=== PATIENT | female | born 1990 | race American Indian/Alaskan Native ===

== ENCOUNTER 2018-08-12 00:41 | Outpatient (CLI) | payer MEDICAID ==
[2018-08-12] MEDS ORDERED: LACTATED RINGERS 1,000 ML IV ONE (00:56)
[2018-08-12 02:50] LABS: Bilirubin,Urine NEG (Negative); Blood,Urine NEG (Negative); Color,Urine Yellow (Yellow); Mucus,Urine 3+ /HPF
== END 2018-08-12 03:38 | disposition home or self-care (01) ==
LOC: TRG 00:41
PROVIDERS: ATTEND Obstetrics & Gynecology
DX: O62.9 Abnormality of forces of labor, unspecified (principal); O26.893 Other specified pregnancy related conditions, third trimester; R10.9 Unspecified abdominal pain; Z3A.29 29 weeks gestation of pregnancy
CPT/HCPCS: 59025; 81001; J7120

== ENCOUNTER 2018-09-24 03:45 | Outpatient (CLI) | payer MEDICAID ==
[2018-09-24] MEDS ORDERED: LACTATED RINGERS 500 ML IV ONE (03:56)
[2018-09-24] MEDS ORDERED: LACTATED RINGERS 1,000 ML ONE (04:11)
[2018-09-24] MEDS ORDERED: BRETHINE SUB-Q ONE (04:34)
[2018-09-24] MEDS ORDERED: LACTATED RINGERS 1,000 ML IV SCH ×2 (04:51→05:00)
[2018-09-24 04:57] LABS: Amphetamine Screen,Urine PRESUMPTIVE NEGATIVE; Benzodiazepines Screen,Urine PRESUMPTIVE NEGATIVE; Cannabinoid Screen,Urine PRESUMPTIVE NEGATIVE; Cocaine Screen,Urine PRESUMPTIVE NEGATIVE; Methadone Screen,Urine PRESUMPTIVE NEGATIVE; Opiate Screen,Urine PRESUMPTIVE NEGATIVE
[2018-09-24 05:16] LABS: Bilirubin,Urine NEG (Negative); Blood,Urine NEG (Negative); Color,Urine Straw (Yellow); Protein,Urine <15 mg/dL mg/dL (Negative); Urobilinogen,Urine < 2.0 mg/dL (<2.0)
[2018-09-24 07:28] VITALS: BP 89/54
--- NOTE | 2018-09-24 10:29 | Ultrasound Report ---
LIMITED OB ULTRASOUND: History: Presentation. Gestation: Zepeda Position: Cephalic Heart Rate: 138 BPM Estimated gestational age is 35 weeks 4 days.
== END 2018-09-24 07:30 | disposition home or self-care (01) ==
LOC: TRG 03:45
PROVIDERS: ATTEND Obstetrics & Gynecology
DX: O62.9 Abnormality of forces of labor, unspecified (principal); Z3A.35 35 weeks gestation of pregnancy
CPT/HCPCS: 59025; 76815; 80307; 81001; 96372; J3105; J7120

== ENCOUNTER 2018-10-27 23:45 | Inpatient (IN) | payer MEDICAID ==
[2018-10-28] MEDS ORDERED: MINERAL OIL PO PRN (00:44)
[2018-10-28] MEDS ORDERED: XYLOCAINE 2% INFILTRATI ONE (00:44)
[2018-10-28] MEDS ORDERED: BRETHINE IVP PRN (00:44)
[2018-10-28] MEDS ORDERED: SUBLIMAZE IV PRN (00:44)
[2018-10-28] MEDS ORDERED: BRETHINE SUB-Q PRN (00:44)
[2018-10-28] MEDS ORDERED: PITOCin/NS 30 UNIT/500ML 30 UNITS/500 ML BAG IV SCH (01:00)
[2018-10-28] MEDS: LACTATED RINGERS 1,000 ML IV SCH ×2 (01:00→03:17)
[2018-10-28] MEDS ORDERED: PITOCin/NS 20 UNIT/1000ML DRIP 20 UNITS/1,000 ML BAG IV SCH (01:00)
[2018-10-28 01:21] LABS: Hematocrit 37.3 % (30.3-42.9); Hemoglobin 12.2 gm/dl (10.1-14.3); Mean Corpuscular HGB Conc 33 % (30-34); Mean Corpuscular Volume 84 fl (79-97); Platelet Count 227 K/mm3 (140-440); Red Blood Count 4.45 M/mm3 (3.65-5.03); Red Cell Distribution Width 14.3 % (13.2-15.2)
[2018-10-28] MEDS ORDERED: NARCAN 2 MG/2 ML IV PRN (02:06)
--- NOTE | 2018-10-28 02:24 | History and Physical Report ---
History of Present Illness Date of examination: 10/28/18 Date of admission: 10/27/18 23:57 Chief complaint: Contractions History of present illness: 27yo G 4 P 1 0 2 1 @ 40 weeks 3 days here with contractions for the past couple of days that worsened at around 11pm. She reports positive FMs but denies VB or LOF. She is a [facility] patient who initiated care at 8 weeks gestation. Her course has been complicated by PTL, +trich (s/p treatment, neg KRISTAL), h/o DVT and PE (was on Lovenox 40mg sq daily; discontinued 2 weeks ago), abnormal pap (ASCUS, +HR HPV), anemia (on supplementation) and vit D deficiency (was supplemented). Labs: A+, Antibody Screen neg, RI, VDRL NR, HBsAg neg, HIV neg, HSV II neg, MSAFP neg, GC/CT/Trich neg, GBS negative. Past History Past Medical History: deep vein thrombosis, other (pulmonary embolism) Past Surgical History: no surgical history LIGHT BULB TESTER History: abnormal PAP smear (ASCUS, +HR HPV), trichomonas (treated; neg KRISTAL) Family/Genetic History: none Social history: single, lives with family, full code. denies: smoking, alcohol abuse, prescription drug abuse, IV drug use - Obstetrical History Expected Date of Delivery: 10/25/18 Actual Gestation: 40 Week(s) 3 Day(s) : 4 Para: 1 Hx # Term Pregnancies: 1 Number of Pregnancies: 0 Spontaneous Abortions: 2 Induced : 0 Number of Living Children: 1 #1 Gender: Female year: 1 (03/02/2011) Birthweight: 3.374 kg (7 lbs 7 oz) Method of Delivery: Vaginal Gestational age at delivery: 41 Complications: none Medications and Allergies Allergies Allergy/AdvReac Type Severity Reaction Status Date / Time No Known Allergies Allergy Verified 01/27/14 09:16 Home Medications Medication Instructions Recorded Confirmed Last Taken Type Cyclobenzaprine HCl [Flexeril 5mg] 5 mg PO QDAY #15 tablet 01/27/14 Unknown Rx Sulfamethoxazole/Trimethoprim 1 each PO BID #6 tablet 01/27/14 Unknown Rx [Bactrim Ds] metroNIDAZOLE [Flagyl] 500 mg PO BID #14 tablet 01/27/14 Unknown Rx traMADol [Ultram 50 MG tab] 50 mg PO Q6HR PRN #15 tablet 01/27/14 Unknown Rx Acetaminophen/Codeine [Tylenol #3] 1 tab PO Q6H PRN #15 tab 08/07/15 Unknown Rx Vit-Fe Fumar-FA [ 1 tab PO QDAY #90 tablet 08/07/15 Unknown Rx Vitamin] Active Meds: Active Medications Ephedrine Sulfate (Ephedrine Sulfate) 10 mg IV Q2M PRN PRN Reason: Hypotension Ephedrine Sulfate (Ephedrine Sulfate) 10 mg IV Q2M PRN PRN Reason: Hypotension Fentanyl (Sublimaze) 100 mcg IV Q2H PRN PRN Reason: Labor Pain Last Admin: 10/28/18 01:23 Dose: 100 mcg Documented by: Oxytocin/Sodium Chloride (Pitocin/Ns 20 Unit/1000ml Drip) 20 units in 1,000 mls @ 125 mls/hr IV DIRECT DONNIE Oxytocin/Sodium Chloride (Pitocin/Ns 30 Unit/500ml) 30 units in 500 mls @ 1 mls/hr IV TITR DONNIE; Protocol Lactated Ringer's (Lactated Ringers) 1,000 mls @ 125 mls/hr IV DIRECT DONNIE Last Admin: 10/28/18 01:00 Dose: 125 mls/hr Documented by: Fentanyl/Bupivacaine/Sodium Chlor (Fentanyl-Bupiv 2 Mcg/Ml-0.125%) 200 mcg in 100 mls @ 12 mls/hr EPIDURAL TITR DONNIE; Protocol Mineral Oil (Mineral Oil) 30 ml PO QHS PRN PRN Reason: Constipation Naloxone HCl (Narcan 2 Mg/2 Ml) 0.2 mg IV Q5M PRN PRN Reason: Respiratory sedation Terbutaline Sulfate (Brethine) 0.25 mg SUB-Q ONCE PRN PRN Reason: Hyperstimulation/Hypertonicity Terbutaline Sulfate (Brethine) 0.25 mg IVP ONCE PRN PRN Reason: Hyperstimulation/Hypertonicity Review of Systems All systems: negative - Vital Signs Vital signs: Vital Signs Pulse BP 102 H 115/75 10/28/18 00:12 10/28/18 00:12 Temp Pulse Resp BP Pulse Ox 97.3 F L 81 114/59 10/28/18 01:02 10/28/18 01:56 10/28/18 01:56 - Obstetrical FHR: auscultation normal, category 1 FHR comments: baseline 140, moderate variability, + accels, no decels Uterine Contraction Monitor Mode: External Cervical Dilatation: 4 (per RN) Cervical Effacement Percentage: 70 (per RN) station: -2 (per RN) Uterine Contraction Pattern: Regular Results Result Diagrams: 10/28/18 01:07 Abnormal lab results 10/28/18 Range/Units 01:07 MCH 27 L (28-32) pg All other labs normal. Assessment and Plan - Patient Problems (1) 40 weeks gestation of Current Visit: Yes Status: Acute (2) Active labor at term Current Visit: Yes Status: Acute Plan to address problem: Admit to L&D with routine labor orders Anticipate vaginal delivery (3) H/O maternal deep vein thrombosis Current Visit: Yes Status: Acute Plan to address problem: Denies calf pain Was on Lovenox 40mg sq daily but discontinued use 2 weeks ago Will continue Lovenox PP (4) History of pulmonary embolism Current Visit: Yes Status: Acute Plan to address problem: Denies SOB or respiratory distress Was on Lovenox 40mg sq daily but discontinued use 2 weeks ago Will continue Lovenox PP
--- NOTE | 2018-10-28 02:59 | Anesthesia Consultation ---
Anesthesia Consult and Med Hx - Airway Anesthetic Teeth Evaluation: Good ROM Head & Neck: Adequate Mental/Hyoid Distance: Adequate Mallampati Class: Class II Intubation Access Assessment: Good - Pulmonary Exam CTA: Yes - Cardiac Exam Cardiac Exam: RRR - Pre-Operative Health Status ASA Pre-Surgery Classification: ASA2 Proposed Anesthetic Plan: Epidural - Pulmonary Hx Asthma: No COPD: No Hx Pneumonia: No - Cardiovascular System Hx Hypertension: No - Central Nervous System Hx Seizures: No Hx Psychiatric Problems: No - Endocrine Hx Renal Disease: No Hx End Stage Renal Disease: No Hx Hypothyroidism: No Hx Hyperthyroidism: No - Hematic Hx Anemia: Yes (taking iron) Hx Sickle Cell Disease: No - Other Systems Hx Alcohol Use: No - Additional Comments Anesthesia Medical History Comments: DVT was taking lovenox, off x 2 weeks
[2018-10-28] MEDS ORDERED: fentaNYL-BUPIV 2 MCG/ML-0.125% 200 MCG/100 ML BAG EPIDURAL SCH (03:00)
--- NOTE | 2018-10-28 03:00 | Anesthesia Day of Surgery ---
Anesthesia Day of Surgery - Day of Surgery Patient Examined: Yes Patient H&P Reviewed: Yes Patient is NPO: Yes
--- NOTE | 2018-10-28 06:26 | Procedure Note ---
OB Delivery Note - Delivery Date of Delivery: 10/28/18 (05:48) Surgeon: YAMIL ESQUIVEL (CN) Estimated blood loss: 300cc - Vaginal Delivery presentation: compound (vertex + left posterior arm) Delivery position: OA Intrapartum events: none Delivery induction: none Delivery augmentation: pitocin Delivery monitor: external FHT, external uterine Route of delivery: (05:48) Delivery placenta: spontaneous (05:59) Episiotomy: none Delivery laceration: 1st degree (bilateral periurethral; hemostatic & left unrepaired) Anesthesia: intravenous, epidural Delivery comments: of a vigorous term female on 10/28/18 @ 05:48. Baby placed oibl-ne-borg on maternal abdomen, dried & bulb-suctioned. Per patient's preference, umbilical cord left attached to the baby and placenta delivered spontaneously @ 05:59. Moderate lochia present. Fundal massage and IV Pitocin bolus initiated. Fundus F/ML/U-2. Multiple small clots expressed. Placenta intact. 1st degree bilateral periurethral laceration present. Both hemostatic and left unrepaired. Perineum intact. Mom and baby [id number] in stable condition. in progress. - Infant A at 1 minute: 8 at 5 minutes: 9 Infant Gender: Female
[2018-10-28] MEDS ORDERED: PHENERGAN PR PRN (06:31)
[2018-10-28] MEDS ORDERED: LANSINOH TP PRN (06:31)
[2018-10-28] MEDS ORDERED: ZOFRAN IV PRN (06:31)
[2018-10-28] MEDS ORDERED: DULCOLAX PR PRN (06:31)
[2018-10-28] MEDS ORDERED: PHENERGAN PO PRN (06:31)
[2018-10-28] MEDS ORDERED: TUCKS PAD TP PRN (06:31)
[2018-10-28] MEDS ORDERED: NORCO 5/325 PO PRN (06:31)
[2018-10-28] MEDS ORDERED: BENADRYL PO PRN (06:31)
[2018-10-28] MEDS ORDERED: MILK OF MAGNESIA PO PRN (06:31)
[2018-10-28] MEDS ORDERED: IBUPROFEN PO SCH (07:00)
[2018-10-28] MEDS ORDERED: SODIUM CHLORIDE FLUSH SYRINGE 10 ML IV PRN (07:00)
[2018-10-28] MEDS ORDERED: FEOSOL PO SCH (10:00)
[2018-10-28] MEDS ORDERED: PRENATAL VITAMIN PO SCH (10:00)
[2018-10-28] MEDS ORDERED: LOVENOX SUB-Q SCH (22:00)
[2018-10-28] MEDS: TYLENOL PO PRN (22:27)
[2018-10-29 06:20] LABS: Hematocrit 37.8 % (30.3-42.9); Hemoglobin 12.5 gm/dl (10.1-14.3)
--- NOTE | 2018-10-29 11:25 | Progress Note ---
Assessment and Plan A: PP Day I Hx of DVT P: Follow Routine Orders Continue Lovenox 40mg Sub-Q until 4 Weeks D/C home today per patient request RTO in 2 weeks Subjective - Subjective Date of service: 10/29/18 Patient reports: appetite normal, voiding normally, pain well controlled, flatus, ambulating normally [place]: doing well Objective - Vital Signs Latest vital signs: Vital Signs Temp Pulse Resp BP BP Pulse Ox 10/28/18 23:55 98.2 F 76 16 108/46 98 10/28/18 16:11 98.0 F 97 H 20 103/64 97 10/28/18 11:32 98.1 F 80 20 104/63 96 Intake and Output 10/28/18 10/29/18 10/29/18 22:59 06:59 14:59 Intake Total 120 Output Total 750 Balance -630 Intake: Oral 120 Output: Urine 750 Void 750 Other: Total, Intake Amount 120 Total, Output Amount 750 Voiding Method Toilet Toilet # Voids Void 1 - Exam Breasts: Present: normal Cardiovascular: Present: Regular rate Lungs: Present: Clear to auscultation, Normal air movement Abdomen: Present: normal appearance, soft, normal bowel sounds Uterus: Present: normal, firm, fundal height below umbilicus Extremities: Present: normal
--- NOTE | 2018-10-29 11:27 | Discharge Summary ---
Providers - Providers Date of Admission: 10/27/18 23:57 Date of discharge: 10/29/18 Attending physician: RUSSEL GRAY MD Primary care physician: RUSSEL GRAY MD Hospitalization Reason for admission: active labor Delivery: Episiotomy: none Laceration: 1st degree Other procedures: none complications: none Discharge diagnosis: IUP at term delivered [place] baby: female Condition at discharge: Good Disposition: DC-01 TO HOME OR SELFCARE Plan - Provider Discharge Summary Activity: routine, no sex for 6 weeks, no heavy lifting 4 weeks, no strenuous exercise Diet: routine Instructions: routine Additional instructions: [] Smoking cessation referral if applicable(refer to patient education folder for contact #) [] Refer to [facility] Booklet Call your doctor immediately for: * Fever > 100.5 * Heavy vaginal bleeding ( >1 pad per hour) * Severe persistent headache * Shortness of breath * Reddened, hot, painful area to leg or breast * Drainage or odor from incision. * Keep incision clean and dry at all times and follow doctor's instructions regarding bathing/showering - Follow up plan Follow up: RUSSEL GRAY MD [Primary Care Provider] - 14 Days
[2018-10-29] MEDS: TYLENOL PO PRN (13:20)
[2018-10-29 17:59] VITALS: BP 91/55
== END 2018-10-29 18:26 | disposition home or self-care (01) | DRG 775 ==
LOC: TRG 23:45 → LD 23:57 → OB 10-28 09:59
PROVIDERS: ADMIT Obstetrics & Gynecology; ATTEND Obstetrics & Gynecology
PROC: 10E0XZZ Delivery of Products of Conception, External Approach (ICD-10-PCS; principal; 2018-10-28)
PROC: 3E0R3BZ Introduction of Anesthetic Agent into Spinal Canal, Percutaneous Approach (ICD-10-PCS; 2018-10-28)
PROC: 00HU33Z Insertion of Infusion Device into Spinal Canal, Percutaneous Approach (ICD-10-PCS; 2018-10-28)
DX: O32.6XX0 Maternal care for compound presentation, not applicable or unspecified (principal); O70.0 First degree perineal laceration during delivery; Z3A.40 40 weeks gestation of pregnancy; Z37.0 Single live birth; Z86.718 Personal history of other venous thrombosis and embolism; Z86.711 Personal history of pulmonary embolism
CPT/HCPCS: 36415; 85014; 85018; 85027; 86592; 86850; 86900; 86901; G0378; A6250; J1650; J2590; J3010; J7120